=== PATIENT | female | born 1995 | race American Indian/Alaskan Native ===

== ENCOUNTER 2018-07-03 18:44 | Emergency (ER) | payer SELFPAY ==
--- NOTE | 2018-07-03 19:18 | Emergency Department Report ---
Blank Doc - Documentation Documentation: This is a 22-year-old female that presents with left foot pain. Denies any in juries. Patient denies any headache. Denies any other complaints or symptoms. This initial assessment diagnostic orders/clinical plan/treatment(s) is/are subject to change based on patient's health status, clinical progression and re- assessment by fellow clinical providers in the ED. Further treatment and workup at subsequent clinical providers discretion. Patient/guardians urged not to elope from ED s their condition may be serious if not clinically assessed and managed. Initial orders include: 1-patient sent to [facility] for further evaluation and treatment. 2- xray
[2018-07-03 19:20] VITALS: BP 161/88
--- NOTE | 2018-07-03 20:29 | XRay Report ---
FINAL REPORT PROCEDURE: XR FOOT 3+V LT TECHNIQUE: LEFT foot radiographs, AP, lateral, and oblique views. CPT 40936 HISTORY: left foot pain COMPARISON: No prior studies are available for comparison. FINDINGS: Fracture (s) and/or Dislocation(s): None . Alignment: Normal . Joint space(s): Normal . Soft tissues: Normal . Bone mineralization: Normal . Foreign bodies: None . Calcaneal spurring: None . IMPRESSION: Normal Examination .
== END 2018-07-03 23:45 | disposition left against medical advice (07) ==
LOC: ED 18:44
DX: M79.672 Pain in left foot (principal); Z91.013 Allergy to seafood

== ENCOUNTER 2019-08-10 10:36 | Emergency (ER) | payer SELFPAY ==
[2019-08-10 10:47] VITALS: BP 166/77
[2019-08-10 11:16] LABS: Bilirubin,Urine NEG (Negative); Blood,Urine NEG (Negative); Color,Urine Yellow (Yellow); Mucus,Urine FEW /HPF; Protein,Urine <15 mg/dL mg/dL (Negative); Urobilinogen,Urine < 2.0 mg/dL (<2.0); WBC,Urine < 1.0 /HPF (0.0-6.0)
--- NOTE | 2019-08-10 11:16 | XRay Report ---
CHEST 2 VIEWS INDICATION: Upper Respiratory Infection. COMPARISON: None. FINDINGS: Support devices: None. Heart: Within normal limits. Pulmonary vasculature: Normal. Lungs/pleura: No acute air space or interstitial disease. No pneumothorax. Additional findings: None. IMPRESSION: 1. Normal chest. Signer Name: Jorge Rea MD Signed: 08/10/2019 11:12 AM Workstation Name: [id number]
[2019-08-10] MEDS ORDERED: diphenhydrAMINE 50 MG/ML VIAL IV ONE (11:20)
[2019-08-10] MEDS ORDERED: METOCLOPRAMIDE 10 MG/2 ML INJ IV ONE (11:20)
[2019-08-10] MEDS ORDERED: KETOROLAC 30 MG/1 ML INJ IV ONE (11:20)
--- NOTE | 2019-08-10 11:21 | Emergency Department Report ---
- General Chief Complaint: Upper Respiratory Infection Stated Complaint: FLU SYM Time Seen by Provider: 08/10/19 11:07 Source: patient Mode of arrival: Ambulatory Limitations: No Limitations - History of Present Illness Initial Comments: 24-year-old -[place] female presents to the emergency room complaining of fever cough sore throat and nasal congestion with chest congestion that started Wednesday. Patient reports she has had a headache for 1 week. Patient states she has been taking Aleve and Robitussin last dose 2 AM. Patient states that her headache is located in the right frontal and temporal area. Patient reports that the pain is a 5 out of 10. Patient does admit to nausea denies any photophobia or visual changes. Patient's last menstrual period was 08/04/2019. Patient reports a past medical history of asthma. Patient reports she used her inhaler on Wednesday. MD Complaint: fever, cough, sore throat, nasal congestion, other (headach) Onset/Timin -: days(s) Severity scale (0 -10): 5 Quality: aching Consistency: constant Improves With: nothing Worsens With: nothing Associated Symptoms: fever, headache, nasal congestion, cough, nausea Treatments Prior to Arrival: Ibuprofen - Related Data Previous Rx's Medication Instructions Recorded Last Taken Type predniSONE [Deltasone] 20 mg PO BID #10 tablet 02/20/13 Unknown Rx Permethrin 5% [Acticin 5% CREAM] 60 gm TP ONCE #1 tube 03/10/13 Unknown Rx Ondansetron [Zofran Odt] 4 mg PO Q4H #10 tab.rapdis 07/04/13 Unknown Rx Allergies Allergy/AdvReac Type Severity Reaction Status Date / Time shellfish derived Allergy Swelling Verified 08/10/19 10:39 ED Review of Systems ROS: Stated complaint: FLU SYM Other details as noted in HPI ED Past Medical Hx - Past Medical History Hx Asthma: Yes - Surgical History Past Surgical History?: No - Social History Smoking Status: Never Smoker Substance Use Type: None - Medications Home Medications: Home Medications Medication Instructions Recorded Confirmed Last Taken Type predniSONE [Deltasone] 20 mg PO BID #10 tablet 02/20/13 Unknown Rx Permethrin 5% [Acticin 5% CREAM] 60 gm TP ONCE #1 tube 03/10/13 Unknown Rx Ondansetron [Zofran Odt] 4 mg PO Q4H #10 tab.rapdis 07/04/13 Unknown Rx ED Physical Exam - General Limitations: No Limitations General appearance: alert, in no apparent distress - Head Head exam: Present: atraumatic, normocephalic - Eye Eye exam: Present: normal appearance - ENT ENT exam: Present: mucous membranes moist - Neck Neck exam: Present: normal inspection, full ROM - Respiratory Respiratory exam: Present: other (Coarse breath sounds) - Cardiovascular Cardiovascular Exam: Present: regular rate, normal rhythm. Absent: systolic murmur, diastolic murmur, rubs, gallop - GI/Abdominal GI/Abdominal exam: Present: soft, normal bowel sounds - Extremities Exam Extremities exam: Present: normal inspection - Back Exam Back exam: Present: normal inspection - Expanded Neurological Exam Expanded Patient oriented to: Present: person, place, time Cranial nerves: EOM's Intact: Normal, Gag Reflex: Normal, Tongue Deviation: Normal, Nystagmus: Normal, Facial Sensation: Normal, Facial Palsy with Forehead Movement: Normal, Facial Palsy without Forehead Movement: Normal Cerebellar function: Finger to Nose: Normal, Heel to Haskins: Normal, Romberg: Normal Upper motor neuron: Eris Neglect: Normal, Pronator Drift: Normal, Sensory Extinction: Normal Motor strength exam: RUE: 4, LUE: 4, RLE: 4, LLE: 4 Best Eye Response (Luana): (4) open spontaneously Best Motor Response (Luana): (6) obeys commands Best Verbal Response ([place]): (5) oriented Luana Total: 15 - Psychiatric Psychiatric exam: Present: normal affect, normal mood - Skin Skin exam: Present: warm, dry, intact, normal color. Absent: rash ED Course Vital Signs 08/10/19 10:43 Temperature 98.7 F Pulse Rate 77 Respiratory 20 Rate Blood Pressure 166/77 O2 Sat by Pulse 100 Oximetry ED Medical Decision Making - Lab Data Result diagrams: 08/10/19 12:00 08/10/19 10:47 - Radiology Data Radiology results: report reviewed Report Referring Physician:NAKIA Torres Name:RUSSELL RAYMONDPatient ID:[id number] of :[id number]:FemaleAccession:[id number] Date:[id number] Status:Finalized Findings [facility] [address] [place] [address] XRay Report Signed Patient: RUSSELL RAYMOND MR#: [id number] : 1995 Acct:[id number] Age/Sex: 24 / F ADM Date: 08/10/19 Loc: ED Attending Dr: Ordering Physician: NAKIA RANGEL Date of Service: 08/10/19 Procedure(s): XR chest routine 2V Accession Number(s): [id number] cc: NAKIA RANGEL Fluoro Time In Minutes: CHEST 2 VIEWS INDICATION: Upper Respiratory Infection. COMPARISON: None. FINDINGS: Support devices: None. Heart: Within normal limits. Pulmonary vasculature: Normal. Lungs/pleura: No acute air space or interstitial disease. No pneumothorax. Additional findings: None. IMPRESSION: 1. Normal chest. Signer Name: Sharron Adkins MD Signed: 08/10/2019 11:12 AM Workstation Name: [id number] Transcribed By: REF Dictated By: SHARRON ADKINS MD Electronically Authenticated By: SHARRON ADKINS MD Signed Date/Time: 08/10/19 1112 DD/ 1108 TD/TT: - Medical Decision Making 24-year-old -[place] female presents to the emergency room complaining of fever cough sore throat and nasal congestion with chest congestion that started Wednesday. Patient reports she has had a headache for 1 week. Patient states she has been taking Aleve and Robitussin last dose 2 AM. Patient states that her headache is located in the right frontal and temporal area. Patient r eports that the pain is a 5 out of 10. Patient does admit to nausea denies any photophobia or visual changes. Patient's last menstrual period was 08/04/2019. Patient reports a past medical history of asthma. Patient reports she used her inhaler on Wednesday. CBC CMP chest x-ray has been ordered. IV insertion Reglan Benadryl and Toradol for headache. Chest x-ray is negative for any acute findings labs are negative for any acute infection. I recommend you to take Tylenol or ibuprofen as needed for headache take [id number] cold and sinus medication and follow-up with your primary care provider. Critical care attestation.: If time is entered above; I have spent that time in minutes in the direct care of this critically ill patient, excluding procedure time. ED Disposition Clinical Impression: Cough, Headache Disposition: DC-01 TO HOME OR SELFCARE Is pt being admited?: No Does the pt Need Aspirin: No Condition: Stable Instructions: Antihistamine/Antitussive (By mouth) Additional Instructions: Chest x-ray is negative for any acute findings labs are negative for any acute infection. I recommend you to take Tylenol or ibuprofen as needed for headache take [id number] cold and sinus medication and follow-up with your primary care provider. Referrals: PRIMARY [facility] [Primary Care Provider] - 3-5 Days [facility] [Provider Group] - 3-5 Days Forms: Work/School Release Form(ED)
[2019-08-10 12:51] LABS: Basophils % (Auto) 0.5 % (0.0-1.8); Eosinophils # (Auto) 0.2 K/mm3 (0.0-0.4); Eosinophils % (Auto) 4.3 % (0.0-4.3); Hematocrit 34.7 % (30.3-42.9); Hemoglobin 11.7 gm/dl (10.1-14.3); Lymphocytes # (Auto) 2.2 K/mm3 (1.2-5.4); Lymphocytes % (Auto) 45.4 % (13.4-35.0); Mean Corpuscular HGB Conc 34 % (30-34); Mean Corpuscular Volume 81 fl (79-97); Monocytes # (Auto) 0.5 K/mm3 (0.0-0.8); Monocytes % (Auto) 10.5 % (0.0-7.3); Platelet Count 459 K/mm3 (140-440); Red Blood Count 4.31 M/mm3 (3.65-5.03); Red Cell Distribution Width 16.4 % (13.2-15.2)
[2019-08-10 13:11] LABS: BUN/Creatinine Ratio 16; Blood Urea Nitrogen 8 mg/dL (7-17); Hemolysis Index 33
== END 2019-08-10 14:30 | disposition home or self-care (01) ==
LOC: ED 10:36
DX: R05 Cough (principal); R51 Headache; R11.0 Nausea; R09.81 Nasal congestion; R50.9 Fever, unspecified; J45.909 Unspecified asthma, uncomplicated; Z91.013 Allergy to seafood
CPT/HCPCS: 36415; 71046; 80048; 81001; 85025; 96374; 96375; 99284; J1200; J1885; J2765